=== PATIENT | female | born 1975 | race Caucasian/White ===

== ENCOUNTER 2017-01-12 09:28 | Day surgery (SDC) | payer OTHER ==
[2017-01-12] VITALS (7 sets, daily range): BP systolic 104–128; BP diastolic 65–81; PULSE 66–80; RESP 12–17; O2SAT 96–99
[~2017-01-12] VITALS: Ht 175.3 cm; Wt 66.4 kg
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
[~2017-01-12 09:28] MED LIST: Clindamycin 600 mg/50 mL D5W IV ONE; HYDR-4003 PO; IBUP200C PO
[2017-01-12] MEDS ORDERED: Dexamethasone 4 mg/mL Inj ONE (09:29)
[2017-01-12] MEDS ORDERED: fentaNYL-PF 50 mCg/mL 2 mL Inj ONE (09:29)
[2017-01-12] MEDS ORDERED: Ondansetron 2 mg/mL 2 mL Inj ONE (09:29)
[2017-01-12] MEDS ORDERED: Propofol 10,000 mCg/mL 20 mL Inj ONE (09:29)
[2017-01-12] MEDS: Lactated Ringer's 1,000 ML IV SCH ×2 (10:07→11:15)
[2017-01-12] MEDS ORDERED: oxyCODONE-Acetamin 5-325 mg Tablet PO PRN (10:35)
[2017-01-12] MEDS ORDERED: Lactated Ringer's 1,000 ML IV ONE (11:20)
[2017-01-12] MEDS ORDERED: Lidocaine 1%-Epi 1:100,000 20 mL Inj INFILTRATE ONE (11:54)
--- NOTE | 2017-01-12 14:09 | PCM.ANEP1 ---
Post Anesthesia Phase 1 PACU Phase 1 Assessment Date of Service: Jan 12, 2017 Vital Signs Vital Signs Date Time Temp Pulse Resp B/P Pulse Ox O2 Delivery O2 Flow Rate FiO2 01/12/17 13:55 71 17 115/73 99 Simple Mask 10 01/12/17 13:50 36.6 68 14 128/81 99 Simple Mask 10 01/12/17 09:46 36.4 80 12 123/77 97 Room Air Anesthetic Administered: GA, Regional Block (Axillary block) Level of Alertness: Awake, talking FLORES's with Equal Strength: Yes Pain: No Nausea or Vomiting: No Oxygen Delivery: Simple Mask (6l) Lungs: Clear to Auscultation, Normal Air Movement Dermatome Level: Full Sensation (With residual sensorimotor block c/w axillary block) Ra Ceja DO Jan 12, 2017 14:09
[2017-01-12] MEDS ORDERED: Lactated Ringer's 500 ML IV PRN (14:59)
[2017-01-12] MEDS ORDERED: Lactated Ringer's 1,000 ML IV SCH (14:59)
[2017-01-12] MEDS ORDERED: fentaNYL-PF 50 mCg/mL 2 mL Inj IVPUSH PRN (15:00)
[2017-01-12] MEDS ORDERED: Atropine 0.4 mg/mL Inj IVPUSH PRN (15:00)
[2017-01-12] MEDS ORDERED: Labetalol 5 mg/mL 4 mL Inj IV PRN (15:00)
[2017-01-12] MEDS ORDERED: Phenylephrine 10,000 mCg/mL Inj IVPUSH PRN (15:00)
[2017-01-12] MEDS ORDERED: HYDROmorphone 1 mg/mL Inj IVPUSH PRN (15:00)
[2017-01-12] MEDS ORDERED: MetoCLOpramide 5 mg/mL 2 mL Inj IVPUSH PRN (15:00)
[2017-01-12] MEDS ORDERED: Dexamethasone 4 mg/mL Inj IVPUSH PRN (15:00)
[2017-01-12] MEDS ORDERED: Ondansetron 2 mg/mL 2 mL Inj IVPUSH PRN (15:00)
[2017-01-12] MEDS ORDERED: EPHEDrine Sulfate 50 mg/mL Inj IVPUSH PRN (15:00)
--- NOTE | 2017-01-12 15:00 | PCM.ANEP2 ---
Post Anesthesia Evaluation ASA/CMS Post Anesthesia Date of Service: Jan 12, 2017 VS in Patient's Normal Range?: Yes Resp Stable; Airway Patent?: Yes CV Function & Hydration Stable: Yes Mental Status Recovered?: Yes Pain control Satisfactory?: Yes N/V Control Satisfactory?: Yes Ra Ceja DO Jan 12, 2017 15:00
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
== END 2017-01-12 23:59 | disposition home or self-care (01) ==
LOC: SAS 09:28
PROVIDERS: ATTEND Orthopaedic Surgery
DX: S62.022K Displaced fracture of middle third of navicular [scaphoid] bone of left wrist, subsequent encounter for fracture with nonunion (principal); M65.4 Radial styloid tenosynovitis [de Quervain]; F41.9 Anxiety disorder, unspecified; F17.210 Nicotine dependence, cigarettes, uncomplicated; X58.XXXD Exposure to other specified factors, subsequent encounter; Y92.9 Unspecified place or not applicable
CPT/HCPCS: 25440; 76001; C1713; J1100; J2250; J2405; J3010; J7120